=== PATIENT | female | born 1955 | race African-American/Black ===

== ENCOUNTER 2016-12-17 11:24 | Emergency (ER) | payer MEDICARE, OTHER ==
[2016-12-17 12:06] LABS: Bilirubin Negative (Negative); Blood, Urine Negative (Negative); Clarity Slightly Cloudy (Clear); Glucose, Urine (Dipstick) Negative (Negative); Leukocyte Trace (Negative); Nitrite Negative (Negative); Protein, Urine (Dipstick) Negative (Neg-Trace); Urobilinogen 0.2 mg/dL (0.2-1.0); pH, Urine 5.5 (5.0-9.0)
[2016-12-17 12:17] LABS: Bacteria/HPF Rare-Few HPF (None Seen); RBC/HPF 0-3 HPF (0-3); Squamous Epithelial 0-3 HPF (0-3); WBC/HPF 0-3 HPF (0-3)
== END 2016-12-17 13:34 | disposition home or self-care (01) ==
LOC: BURERS 11:24
DX: M54.5 Low back pain (principal); J44.9 Chronic obstructive pulmonary disease, unspecified; M81.0 Age-related osteoporosis without current pathological fracture; E78.5 Hyperlipidemia, unspecified; F41.9 Anxiety disorder, unspecified; Z79.82 Long term (current) use of aspirin; Z79.899 Other long term (current) drug therapy
CPT/HCPCS: 81003; 81015; 96372; J2270

== ENCOUNTER 2017-04-16 17:17 | Emergency (ER) | payer MEDICARE, OTHER ==
[2017-04-16] MEDS ORDERED: AMOXicillin 250 MG CAP ONE (17:34)
== END 2017-04-16 17:38 | disposition home or self-care (01) ==
LOC: BURERS 17:17
DX: J20.9 Acute bronchitis, unspecified (principal); D86.9 Sarcoidosis, unspecified; E78.5 Hyperlipidemia, unspecified; F41.9 Anxiety disorder, unspecified; M81.0 Age-related osteoporosis without current pathological fracture; J44.9 Chronic obstructive pulmonary disease, unspecified; M19.90 Unspecified osteoarthritis, unspecified site
CPT/HCPCS: 99283

== ENCOUNTER 2017-07-10 06:59 | Emergency (ER) | payer MEDICARE, OTHER ==
[2017-07-10] MEDS ORDERED: Oseltamivir 75 MG CAP ONE (07:27)
== END 2017-07-10 07:38 | disposition home or self-care (01) ==
LOC: BURERS 06:59
DX: J11.1 Influenza due to unidentified influenza virus with other respiratory manifestations (principal); I10 Essential (primary) hypertension; J44.9 Chronic obstructive pulmonary disease, unspecified; M19.90 Unspecified osteoarthritis, unspecified site; E78.5 Hyperlipidemia, unspecified; G89.29 Other chronic pain; F41.9 Anxiety disorder, unspecified; Z79.82 Long term (current) use of aspirin; Z79.899 Other long term (current) drug therapy; Z79.891 Long term (current) use of opiate analgesic
CPT/HCPCS: 99283

== ENCOUNTER 2019-11-29 18:59 | Emergency (ER) | payer MEDICARE, OTHER ==
[2019-12-01 13:46] LABS: SARS-CoV-2 MS2 Positive; SARS-CoV-2 N Gene Negative; SARS-CoV-2 S Gene Negative; SARS-CoV-2 orf1ab Negative
== END 2019-11-29 20:16 | disposition home or self-care (01) ==
LOC: BURERS 18:59
DX: B34.9 Viral infection, unspecified (principal); Z20.828 Contact with and (suspected) exposure to other viral communicable diseases; I10 Essential (primary) hypertension; J44.9 Chronic obstructive pulmonary disease, unspecified; M19.90 Unspecified osteoarthritis, unspecified site; E78.5 Hyperlipidemia, unspecified; F41.9 Anxiety disorder, unspecified; F32.9 Major depressive disorder, single episode, unspecified; Z79.899 Other long term (current) drug therapy; Z79.82 Long term (current) use of aspirin
CPT/HCPCS: 87081; 87430; 87804 ×2; 99283; U0003; 87635

== ENCOUNTER 2020-02-06 11:04 | Emergency (ER) | payer MEDICARE, OTHER | END 2020-02-06 11:30 | disposition home or self-care (01) | LOC: BURERS 11:04 | DX: M19.072 Primary osteoarthritis, left ankle and foot (principal); D86.9 Sarcoidosis, unspecified; I10 Essential (primary) hypertension; J44.9 Chronic obstructive pulmonary disease, unspecified; M81.0 Age-related osteoporosis without current pathological fracture; E78.5 Hyperlipidemia, unspecified; F41.9 Anxiety disorder, unspecified; F32.9 Major depressive disorder, single episode, unspecified; Z79.82 Long term (current) use of aspirin; Z79.51 Long term (current) use of inhaled steroids; Z79.899 Other long term (current) drug therapy | CPT/HCPCS: 99283 ==

== ENCOUNTER 2020-03-20 14:15 | Emergency (ER) | payer MEDICARE, OTHER ==
[2020-03-20] MEDS ORDERED: predniSONE 20 MG TAB ONE (16:26)
== END 2020-03-20 16:30 | disposition home or self-care (01) ==
LOC: BURERS 14:15
DX: M26.601 Right temporomandibular joint disorder, unspecified (principal); I10 Essential (primary) hypertension; J44.9 Chronic obstructive pulmonary disease, unspecified; E78.5 Hyperlipidemia, unspecified; F32.9 Major depressive disorder, single episode, unspecified; F41.9 Anxiety disorder, unspecified; M19.90 Unspecified osteoarthritis, unspecified site; Z79.899 Other long term (current) drug therapy; Z79.82 Long term (current) use of aspirin; Z79.891 Long term (current) use of opiate analgesic
CPT/HCPCS: 99283; J7512

== ENCOUNTER 2020-06-15 21:09 | Emergency (ER) | payer MEDICARE, OTHER ==
--- NOTE | 2020-06-16 07:25 | RAD ---
RIGHT SHOULDER 3 VIEWS: Date: 06/15/2020 No acute fracture or dislocation seen. Prior surgery is noted in the humeral head. There is some mild arthritic change in the AC joint. Some scarring is suggested in the right lung. IMPRESSION: No acute bony finding. POS: HOME
== END 2020-06-15 22:10 | disposition home or self-care (01) ==
LOC: BURERS 21:09
DX: S46.001A Unspecified injury of muscle(s) and tendon(s) of the rotator cuff of right shoulder, initial encounter (principal); I10 Essential (primary) hypertension; J44.9 Chronic obstructive pulmonary disease, unspecified; E78.5 Hyperlipidemia, unspecified; Z79.82 Long term (current) use of aspirin; Z79.899 Other long term (current) drug therapy; Z79.51 Long term (current) use of inhaled steroids; W01.0XXA Fall on same level from slipping, tripping and stumbling without subsequent striking against object, initial encounter

== ENCOUNTER 2020-12-25 09:16 | Emergency (ER) | payer MEDICARE, OTHER ==
[2020-12-25] MEDS ORDERED: predniSONE 20 MG TAB ONE (10:02)
== END 2020-12-25 10:03 | disposition home or self-care (01) ==
LOC: BURERS 09:16
DX: B34.9 Viral infection, unspecified (principal); I10 Essential (primary) hypertension; J44.9 Chronic obstructive pulmonary disease, unspecified; E78.5 Hyperlipidemia, unspecified; Z79.82 Long term (current) use of aspirin; Z79.899 Other long term (current) drug therapy
CPT/HCPCS: 71046; J7512

== ENCOUNTER 2021-01-08 16:34 | Emergency (ER) | payer MEDICARE, OTHER ==
[2021-01-08 17:34] LABS: #Basophils 0.1 thou/uL (0.0-0.2); #Eosinphils 0.4 thou/uL (0.0-0.7); #Lymphocytes 2.6 thou/uL (1.20-3.40); #Monocytes 0.4 thou/uL (0.11-0.59); #Neutrophils 3.1 thou/uL (1.40-6.50); %Basophils 1.4 % (0.0-1.0); %Eosinophils 5.8 % (0.0-10.0); %Lymphocytes 39.8 % (21.0-51.0); %Monocytes 5.5 % (0.0-10.0); %Neutrophils 47.5 % (42.0-75.0); ALT (SGPT) 27 U/L (8-55); AST (SGOT) 28 U/L (5-34); Alkaline Phosphatase 69 U/L (40-110); Anion Gap 12 mmol/L (10-20); BUN (Urea Nitrogen) 14 mg/dL (9.8-20.1); Calc. Creatinine Clearance 0 mL/min (70-130); Carbon Dioxide 22 mmol/L (23-31); Chloride 110 mmol/L (98-107); Globulin 2.8 g/dL (2.4-3.5); Glucose 123 mg/dL (80-115); Hemoglobin 14.2 g/dL (12.0-16.0); Mean Corpuscular HGB CONC 33.5 g/dL (32.0-36.0); Mean Corpuscular Hemoglobin 29.6 pg (27.0-31.0); Mean Corpuscular Volume 88.5 fL (78.0-98.0); Mean Platelet Volume 7.3 fL (7.4-10.4); Platelet Count 269 thou/uL (130-400); Potassium 3.8 mmol/L (3.5-5.1); Protein, Total 6.8 g/dL (5.8-8.1); RBC Distribution Width 13.7 % (11.5-14.5); Red Blood Cell (RBC) Count 4.79 mill/uL (4.20-5.40); Sodium 140 mmol/L (136-145); White Blood Cell (WBC) Count 6.5 thou/uL (4.8-10.8)
== END 2021-01-08 17:28 | disposition home or self-care (01) ==
LOC: BURERS 16:34
DX: R07.89 Other chest pain (principal); R06.00 Dyspnea, unspecified; I10 Essential (primary) hypertension; J44.9 Chronic obstructive pulmonary disease, unspecified; M19.90 Unspecified osteoarthritis, unspecified site; M81.0 Age-related osteoporosis without current pathological fracture; E78.5 Hyperlipidemia, unspecified; Z79.82 Long term (current) use of aspirin; Z79.899 Other long term (current) drug therapy
CPT/HCPCS: 71046; 80053; 83880; 84484; 85025; 93005

== ENCOUNTER 2021-05-06 12:59 | Emergency (ER) | payer MEDICARE, OTHER | END 2021-05-06 16:06 | disposition home or self-care (01) | LOC: BURERS 12:59 | DX: M79.672 Pain in left foot (principal); E78.2 Mixed hyperlipidemia; J44.9 Chronic obstructive pulmonary disease, unspecified; I10 Essential (primary) hypertension; Z79.899 Other long term (current) drug therapy; Z79.82 Long term (current) use of aspirin | CPT/HCPCS: 99283 ==

== ENCOUNTER 2021-11-25 10:13 | Emergency (ER) | payer MEDICARE, OTHER | END 2021-11-25 11:12 | disposition home or self-care (01) | LOC: BURERS 10:13 | DX: M26.601 Right temporomandibular joint disorder, unspecified (principal); E78.2 Mixed hyperlipidemia; M19.90 Unspecified osteoarthritis, unspecified site; J44.9 Chronic obstructive pulmonary disease, unspecified; I10 Essential (primary) hypertension; Z79.899 Other long term (current) drug therapy; Z79.82 Long term (current) use of aspirin; Z79.51 Long term (current) use of inhaled steroids | CPT/HCPCS: 99282 ==

== ENCOUNTER 2022-02-27 21:00 | Emergency (ER) | payer MEDICARE, OTHER ==
[2022-02-27] MEDS ORDERED: Ibuprofen 800 MG TAB ONE (22:07)
[2022-02-27] MEDS ORDERED: AMOXicillin 250 MG CAP ONE (22:07)
== END 2022-02-27 22:25 | disposition home or self-care (01) ==
LOC: BURERS 21:00
DX: K02.9 Dental caries, unspecified (principal); E78.5 Hyperlipidemia, unspecified; J44.9 Chronic obstructive pulmonary disease, unspecified; I10 Essential (primary) hypertension; Z79.899 Other long term (current) drug therapy; Z79.82 Long term (current) use of aspirin
CPT/HCPCS: 99282

== ENCOUNTER 2022-06-05 09:53 | Emergency (ER) | payer MEDICARE ==
[2022-06-05 11:11] LABS: Bilirubin Negative (Negative); Blood, Urine Negative (Negative); Clarity Clear (Clear); Glucose, Urine (Dipstick) Negative (Negative); Ketone, Urine Negative (Negative); Leukocyte Trace (Negative); Nitrite Negative (Negative); Protein, Urine (Dipstick) 30 mg/dL (Neg-Trace); Urobilinogen 0.2 mg/dL (Less than 2); pH, Urine 6.5 (5.0-9.0)
[2022-06-05 11:12] LABS: Specific Gravity, Urine 1.023 (1.002-1.036)
[2022-06-05 11:38] LABS: RBC/HPF None Seen HPF (0-3)
[2022-06-05 11:39] LABS: Bacteria/HPF Rare-Few HPF (None Seen); Mucous/LPF 1+ LPF (<2+); Squamous Epithelial 0-3 HPF (0-3); WBC/HPF 0-3 HPF (0-3)
== END 2022-06-05 12:09 | disposition home or self-care (01) ==
LOC: BURERS 09:53
DX: J20.8 Acute bronchitis due to other specified organisms (principal); E78.5 Hyperlipidemia, unspecified; Z20.822 Contact with and (suspected) exposure to COVID-19
CPT/HCPCS: 81003; 81015; 87804; 99283; U0003; U0005

== ENCOUNTER 2023-03-17 09:32 | Emergency (ER) | payer MEDICARE, OTHER | END 2023-03-17 10:27 | disposition home or self-care (01) | LOC: BURERS 09:32 | DX: J18.9 Pneumonia, unspecified organism (principal); J44.9 Chronic obstructive pulmonary disease, unspecified; Z20.822 Contact with and (suspected) exposure to COVID-19 | CPT/HCPCS: 71045; 87635; 99283 ==

== ENCOUNTER 2023-04-03 14:51 | Emergency (ER) | payer MEDICARE ==
[2023-04-03] MEDS ORDERED: predniSONE 20 MG TAB ONE (15:38)
[2023-04-03] MEDS ORDERED: Ibuprofen 200 MG TAB ONE (15:38)
== END 2023-04-03 15:44 | disposition home or self-care (01) ==
LOC: BURERS 14:51
DX: S13.9XXA Sprain of joints and ligaments of unspecified parts of neck, initial encounter (principal); J44.9 Chronic obstructive pulmonary disease, unspecified; X58.XXXA Exposure to other specified factors, initial encounter
CPT/HCPCS: 99282; J7512

== ENCOUNTER 2023-04-22 19:44 | Emergency (ER) | payer MEDICARE | END 2023-04-22 20:37 | disposition home or self-care (01) | LOC: BURERS 19:44 | DX: M54.2 Cervicalgia (principal); E78.2 Mixed hyperlipidemia; J44.9 Chronic obstructive pulmonary disease, unspecified; I10 Essential (primary) hypertension | CPT/HCPCS: 99283 ==

== ENCOUNTER 2023-12-08 14:45 | Emergency (ER) | payer MEDICARE ==
[2023-12-08 15:52] LABS: Bilirubin Negative (Negative); Blood, Urine Negative (Negative); Clarity Clear (Clear); Glucose, Urine (Dipstick) Negative (Negative); Ketone, Urine Negative (Negative); Leukocyte Small (Negative); Nitrite Negative (Negative); Protein, Urine (Dipstick) Negative (Neg-Trace); pH, Urine 5.5 (5.0-9.0)
[2023-12-08] MEDS ORDERED: Ketorolac Tromethamine 30 MG (1 mL) VIAL ONE (15:59)
[2023-12-08 16:06] LABS: Bacteria/HPF 2+ HPF (None Seen); CAUTI Indications for Culture Dysuria,urgency,freq; Mucous/LPF 4+ LPF (<2+); RBC/HPF None Seen HPF (0-3); WBC/HPF 0-3 HPF (0-3)
[2023-12-08 16:07] LABS: Urine Culture Reflex No No
== END 2023-12-08 17:08 | disposition home or self-care (01) ==
LOC: BURERS 14:45
DX: S39.011A Strain of muscle, fascia and tendon of abdomen, initial encounter (principal); I10 Essential (primary) hypertension; E78.5 Hyperlipidemia, unspecified; J44.9 Chronic obstructive pulmonary disease, unspecified; X58.XXXA Exposure to other specified factors, initial encounter
CPT/HCPCS: 74176; 81001; J1885; 96372

== ENCOUNTER 2024-01-09 20:41 | Emergency (ER) | payer MEDICARE ==
[2024-01-09] MEDS ORDERED: Acetaminophen 500 MG TAB ONE (20:58)
[2024-01-09 22:33] LABS: SARS-CoV-2 E Target Positive; SARS-CoV-2 N2 Target Positive; SARS-CoV-2 NAA Rapid Test DETECTED (NotDetected); SARS-CoV-2 RdRP gene Positive
== END 2024-01-09 21:10 | disposition home or self-care (01) ==
LOC: BURERS 20:41
DX: U07.1 COVID-19 (principal); J44.9 Chronic obstructive pulmonary disease, unspecified; I10 Essential (primary) hypertension
CPT/HCPCS: 99283; U0002

== ENCOUNTER 2024-06-15 09:39 | Emergency (ER) | payer MEDICARE ==
[2024-06-15] MEDS ORDERED: Aspirin Chewable 81 MG TAB ONE (10:00)
[2024-06-15 10:07] LABS: #Basophils 0.1 thou/uL (0.0-0.2); #Eosinophils 0.3 thou/uL (0.0-0.7); #Lymphocytes 1.9 thou/uL (1.20-3.40); #Monocytes 0.5 thou/uL (0.11-0.59); #Neutrophils 2.3 thou/uL (1.40-6.50); %Basophils 1.3 % (0.0-1.0); %Eosinophils 5.3 % (0.0-10.0); %Lymphocytes 37.3 % (21.0-51.0); %Monocytes 10.2 % (0.0-10.0); %Neutrophils 45.9 % (42.0-75.0); Hematocrit 40.5 % (36.0-47.0); Hemoglobin 13.5 g/dL (12.0-16.0); Mean Corpuscular HGB CONC 33.3 g/dL (32.0-36.0); Mean Corpuscular Hemoglobin 28.2 pg (27.0-31.0); Mean Corpuscular Volume 84.6 fl (78.0-98.0); Mean Platelet Volume 6.7 fL (7.4-10.4); Platelet Count 277 10x3/uL (130-400); RBC Distribution Width 13.4 % (11.5-14.5); Red Blood Cell (RBC) Count 4.79 mill/uL (4.20-5.40)
[2024-06-15 10:30] LABS: Troponin I Less than 0.010 ng/mL (< 0.028)
[2024-06-15 10:31] LABS: ALT (SGPT) 25 U/L (8-55); AST (SGOT) 27 U/L (5-34); Albumin 3.9 g/dL (3.4-4.8); Alkaline Phosphatase 66 U/L (40-110); Anion Gap 14 mmol/L (10-20); BUN (Urea Nitrogen) 13 mg/dL (9.8-20.1); Bilirubin, Total 1.1 mg/dL (0.2-1.2); Calc. Creatinine Clearance 0 mL/min (70-130); Calcium 9.4 mg/dL (7.8-10.44); Carbon Dioxide 25 mmol/L (23-31); Chloride 107 mmol/L (98-107); Estimated GFR 88; Globulin 2.7 g/dL (2.4-3.5); Glucose 89 mg/dL (80-115); Lipase 9 U/L (8-78); Potassium 4.6 mmol/L (3.5-5.1); Protein, Total 6.6 g/dL (5.8-8.1); Sodium 141 mmol/L (136-145)
== END 2024-06-15 16:04 | disposition short-term general hospital (02) ==
LOC: BURERS 09:39
DX: R07.9 Chest pain, unspecified (principal); I10 Essential (primary) hypertension; E78.5 Hyperlipidemia, unspecified; I25.2 Old myocardial infarction; J44.9 Chronic obstructive pulmonary disease, unspecified
CPT/HCPCS: 71045; 80053; 83690; 84484; 85025; 93005

== ENCOUNTER 2025-03-01 09:19 | Emergency (ER) | payer MEDICARE ==
[2025-03-01] MEDS ORDERED: predniSONE 20 MG TAB ONE (10:09)
== END 2025-03-01 11:05 | disposition home or self-care (01) ==
LOC: BURERS 09:19
DX: M77.32 Calcaneal spur, left foot (principal); M72.2 Plantar fascial fibromatosis; I25.2 Old myocardial infarction; I10 Essential (primary) hypertension; J44.9 Chronic obstructive pulmonary disease, unspecified
CPT/HCPCS: 99283; J7512